=== PATIENT | female | born 1995 | race Hispanic/Latino ===

== ENCOUNTER 2020-04-01 00:36 | Outpatient (CLI) | payer OTHER, SELFPAY ==
[2020-04-01 16:18] LABS: SARS-CoV-2 RNA PCR Negative
== END 2020-04-01 00:37 | disposition home or self-care (01) ==
PROVIDERS: PCP Internal Medicine Infectious Disease; Visit Provider Obstetrics & Gynecology
DX: Z01.818 Encounter for other preprocedural examination (principal); Z11.59 Encounter for screening for other viral diseases
CPT/HCPCS: 87635; U0003

== ENCOUNTER 2020-04-01 09:43 | Outpatient (CLI) | payer OTHER, SELFPAY ==
[2020-04-01 10:05] LABS: Hematocrit 32.4 % (37.0-47.0); Hemoglobin 10.4 g/dL (12.0-15.0)
[2020-04-01 10:15] LABS: Blood Urea Nitrogen 8 mg/dL (7-17); Carbon Dioxide 26 mmol/L (22-30); Chloride 103 mmol/L (98-107); Estimated Glomerular Filt Rate > 60; Glucose 108 mg/dL (65-105); Potassium 4.6 mmol/L (3.4-5.0); Sodium 135 mmol/L (137-145)
== END 2020-04-01 09:44 | disposition home or self-care (01) ==
LOC: ANHLAB 09:45
PROVIDERS: Anesthesiology; PCP Internal Medicine Infectious Disease; Visit Provider Obstetrics & Gynecology
DX: Z01.818 Encounter for other preprocedural examination (principal); R58 Hemorrhage, not elsewhere classified; Z79.899 Other long term (current) drug therapy
CPT/HCPCS: 36415; 80048; 85014; 85018; 87635; C9803; U0003

== ENCOUNTER 2020-04-04 00:34 | Day surgery (SDC) | payer OTHER, SELFPAY ==
[2020-03-31 10:58] VITALS: BMI 37.8
--- NOTE | 2020-04-03 11:31 | PM.IMHP ---
H&P: HPI History of Present Illness Chief complaint: Excessive Bleeding/ Uterine Polyp Narrative: Dalia Tucker is a 24 year old female 0 who was admitted for hysteroscopy polypectomy dilatation curettage. She has had heavy bleeding underwent an ultrasound which showed thickened area of endometriosis. She was previously diagnosed with polycystic ovarian syndrome and has been on the pill. She continues to bleed and the ultrasound showed a prominent endometrial lining with an increased vasculature. Risks and benefits were reviewed. Review of Systems Review of Systems: All systems reviewed & are unremarkable except as noted in HPI and below Meds Home Medications and Allergies Home Medications Medication Instructions Recorded Confirmed Type ibuprofen 200 mg PO DIRECTED PRN 03/31/20 03/31/20 History metformin 500 mg PO BID 03/31/20 03/31/20 History norethindrone-e.estradiol-iron [Lo 1 tablet PO DAILY 03/31/20 03/31/20 History Loestrin Fe] spironolactone 100 mg PO BID 03/31/20 03/31/20 History Allergies Allergy/AdvReac Type Severity Reaction Status Date / Time No Known Allergies Allergy Verified 03/31/20 10:59 Exam Const: General: no acute distress Eyes: General: appearance normal, both eyes and all related structures Neck: Neck: supple and no JVD Thyroid: thyroid normal Resp: Effort & Inspection: normal respiratory effort Auscultation: clear to auscultation bilaterally Cardio: Rate: regular rate Rhythm: regular rhythm GI: Inspection: non-distended GI Palp: Yes Soft to palpation, No Tenderness to palpation present (GI) and No Guarding due to palpation present (GI) Auscultation: normal bowel sounds : General: Yes bladder normal to palpation External Female Exam: normal external appearance Speculum Exam - Vagina: normal vaginal discharge and No vaginal bleeding Speculum Exam - Cervix: nontender Bimanual exam- vagina & uterus: bladder normal to palpation and No Cervical tenderness present OB/external & speculum: No vaginal bleeding Skin: General skin exam: no rashes or lesions noted Extrem: General: normal to inspection and no edema Psych: Mental Status: mental status grossly normal Affect: normal affect Assessment and Plan Additional Plan Impression: Excessive heavy bleeding with thickened endometrium Plan: Hysteroscopy/dilatation curettage/possible polypectomy
[2020-04-04] MEDS: LACTATED RINGERS 1,000 ML 30 ML IV CONT (06:28)
[2020-04-04 06:35] VITALS: BP 119/66; PULSE 87; RESP 16; TEMP 37.1; O2SAT 100
--- NOTE | 2020-04-04 06:42 | WPDHPUPDATE1 ---
History and Physical Update Update Date/Time: 04/04/20 06:42 History and Physical has been reviewed, including an updated exam of the patient. There are NO changes in the patient's condition. Risks, benefits, and alternatives have been discussed and questions answered. Patient agrees to proceed with procedure.
[2020-04-04] MEDS: KETOROLAC 30 MG/ML VIAL (*BKC) IV PUSH (07:34)
--- NOTE | 2020-04-04 07:42 | PM.PROC ---
Procedure Note - Detailed Date of procedure: 04/04/20 Pre-op diagnosis: Excessive Bleeding/ Uterine Polyp Surgeon: Brian Horn MD Postop diagnosis: Excessive heavy bleeding Procedure: Hysteroscopy/dilatation and curettage Anesthesia: IV sedation and local EBL: 25cc Findings: Thick irregular endometrial tissue. Each fallopian tube tube os could be seen. Clots were present in the uterus Complications: None Description of procedure: The patient was prepped and draped in the normal sterile fashion and placed in the dorsal lithotomy position. Under excellent IV sedation weighted speculum was placed in posterior fornix of vagina. Anterior lip of the cervix grasped with a single-tooth tenaculum. 2.5cc of 1% xylocaine anesthesia placed at 2, 4, 8, 10:00 a.m. of the cervix. Uterus sounded 8cm. Serial dilatation with fragmented dilators performed followed by passage of 5 visualizing hysteroscope. Normal saline was used as visualizing medium thick irregular tissue was seen. Clots were seen. No evidence of polyp was noted. The uterus was scraped over the entire 360? until a good grating sound was heard. The procedure was terminated all sponge, needle, instrument counts were correct. There were no immediate complications
[2020-04-04 07:45] VITALS: BP 122/63; PULSE 96; RESP 16; O2SAT 93
[2020-04-04 08:15] VITALS: BP 123/69; PULSE 86; RESP 16
[2020-04-04 08:40] VITALS: BP 141/67; PULSE 74; RESP 16
== END 2020-04-04 08:52 | disposition home or self-care (01) ==
PROVIDERS: Visit Provider Obstetrics & Gynecology
PROC: 0U5B8ZZ Destruction of Endometrium, Via Natural or Artificial Opening Endoscopic (ICD-10-PCS; CPT 58563; principal; 2020-04-04 07:30)
DX: N93.9 Abnormal uterine and vaginal bleeding, unspecified (principal); E28.2 Polycystic ovarian syndrome
CPT/HCPCS: 58558; 88305; J1885; J2001; J2250; J2704; J3010; J7030; J7120